=== PATIENT | female | born 2000 | race Caucasian/White ===

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

== ENCOUNTER 2020-12-30 17:23 | Emergency (ER) | payer OTHER, MEDICAID ==
[2020-12-30 17:46] LABS: BILIRUBIN,URINE NEGATIVE (NEGATIVE); GLUCOSE, URINE (UA) 500 mg/dL (NEGATIVE); KETONES,URINE (UA) NEGATIVE (NEGATIVE); LEUKOCYTE ESTERASE, URINE NEGATIVE (NEGATIVE); NITRITE,URINE NEGATIVE (NEGATIVE); OCCULT BLOOD,URINE TRACE-INTA (NEGATIVE); PH,URINE 7.5 PH (5.0-7.5); PROTEIN,URINE NEGATIVE (NEGATIVE); UROBILINOGEN,URINE 0.2 (NORMAL) E.U./dL (NORMAL)
[2020-12-30 17:55] LABS: CLARITY,URINE HAZY (CLEAR); HCG UR QUAL NEGATIVE
[2020-12-30 17:56] LABS: AMORPHOUS SEDIMENT,UR Marked /LPF; BACTERIA,URINE Moderate /HPF (None Seen); RBC,URINE None Seen /HPF (0-5); SQUAMOUS EPITHELIAL CELL,UR MANY Squamous (<= Few); WBC,URINE 0-3 /HPF (0-5)
[2020-12-30] MEDS ORDERED: oxyCODONE 5 MG TABLET PO STA (18:09)
--- NOTE | 2020-12-30 18:10 | ED Physician Documentation ---
PD HPI ABD PAIN - Stated complaint Stated Complaint: RT SIDE PX - Chief complaint Chief Complaint: Back Pain - History obtained from History obtained from: Patient - Additional information Additional information: 20-year-old woman with history of ovarian cysts, anxiety and depression presents with 5 days of right mid lateral abdominal pain. It is waxing and waning but has been constant over the last 6 hours. It is not associated with nausea. She is tried ibuprofen or Aleve and Tylenol without relief. No history of abdominal surgeries but she did have a remote EGD. Review of Systems Ten Systems: 10 systems reviewed and negative Constitutional: denies: Fever, Chills Cardiac: denies: Chest pain / pressure, Palpitations Respiratory: denies: Dyspnea, Cough PD PAST MEDICAL HISTORY - Past Medical History Past Medical History: Yes Cardiovascular: None Respiratory: None Neuro: None Endocrine/Autoimmune: None Psych: Depression, ADD/ADHD - Past Surgical History Past Surgical History: No - Present Medications Home Medications: Ambulatory Orders Medication Instructions Recorded Confirmed Cetirizine [ZyrTEC] 10 mg PO DAILY #15 tablet 09/18/18 12/30/20 Topiramate [Topamax] 100 mg PO BID 09/18/18 12/30/20 cloNIDine [Catapres] 0.1 mg PO ONCE 09/18/18 12/30/20 Oxycodone HCl/Acetaminophen 1 - 2 each PO Q6H PRN #14 tablet 12/30/20 [Percocet 5-325 mg Tablet] Sertraline [Zoloft] 50 mg PO DAILY 12/30/20 12/30/20 Trazodone HCl 100 mg PO DAILY PM 12/30/20 12/30/20 Venlafaxine ER [Effexor ER] 75 mg PO DAILY 12/30/20 12/30/20 - Allergies Allergies/Adverse Reactions: Allergies Allergy/AdvReac Type Severity Reaction Status Date / Time No Known Drug Allergies Allergy Verified 12/30/20 17:33 - Social History Does the pt smoke?: No Smoking Status: Never smoker Does the pt drink ETOH?: No Does the pt have substance abuse?: No - Immunizations Immunizations are current?: Yes PD ED PE NORMAL - Vitals Vital signs reviewed: Yes - General General: Alert and oriented X 3, No acute distress - Abdomen Abdomen: Normal bowel sounds, Soft, Other (Tender in the right lower quadrant without guarding or rebound. Seems to be more in the pelvis than at McBurney's point.) - Back Back: No CVA TTP - Derm Derm: Normal color, Warm and dry - Extremities Extremities: No edema, No calf tenderness / cord - Neuro Neuro: Alert and oriented X 3, Normal speech Results - Vitals Vitals: Vital Signs - 24 hr 12/30/20 17:28 Temperature 36.9 C Heart Rate 74 Respiratory 16 Rate Blood Pressure 136/78 H O2 Saturation 98 Oxygen O2 Source Room air - Labs Labs: Laboratory Tests 12/30/20 12/30/20 12/30/20 17:42 18:28 18:28 WBC 10.4 RBC 4.67 Hgb 14.6 Hct 42.3 MCV 90.6 MCH 31.3 H MCHC 34.5 RDW 12.9 Plt Count 287 MPV 9.9 Neut # (Auto) 6.7 H Lymph # (Auto) 2.7 [place] # (Auto) 0.7 Eos # (Auto) 0.2 Baso # (Auto) 0.1 Absolute Nucleated RBC 0.00 Nucleated RBC % 0.0 Sodium 136 Potassium 4.0 Chloride 108 Carbon Dioxide 20 L Anion Gap 8.0 BUN 16 Creatinine 0.9 Estimated GFR (MDRD) 80 L Glucose 190 H Calcium 9.4 Total Bilirubin 0.7 AST 49 H ALT 55 Alkaline Phosphatase 92 Total Protein 6.9 Albumin 4.4 Globulin 2.5 Albumin/Globulin Ratio 1.8 Lipase 28 Urine Color YELLOW Urine Clarity HAZY Urine pH 7.5 Ur Specific [place] 1.025 Urine Protein NEGATIVE Urine Glucose (UA) 500 H Urine Ketones NEGATIVE Urine Occult Blood TRACE-INTA Urine Nitrite NEGATIVE Urine Bilirubin NEGATIVE Urine Urobilinogen 0.2 (NORMAL) Ur Leukocyte Esterase NEGATIVE Urine RBC None Seen Urine WBC 0-3 Ur Squamous Epith Cells MANY Squamous H Amorphous Sediment Marked Urine Bacteria Moderate H Ur Microscopic Review INDICATED Urine Culture Comments NOT INDICATED Urine HCG, Qual NEGATIVE PD MEDICAL DECISION MAKING - ED course ED course: 20-year-old female presents with right-sided abdominal pain. Differential diagnosis includes ovarian cyst, appendicitis, renal colic at all. CT shows UVJ stones. Pain was better after an oxycodone here. Given that she is of childbearing age and the small stone size I am not prescribing Flomax. She had ancillary complaint of numbness in the anterior lateral left thigh for 6 months. This is consistent with meralgia paresthetica. Departure - Departure Disposition: Home, Self Care Clinical Impression: Renal colic on right side, Meralgia paresthetica of left side Condition: Good Record reviewed to determine appropriate education?: Yes Instructions: ED Stone Renal W Colic Prescriptions: Oxycodone HCl/Acetaminophen [Percocet 5-325 mg Tablet] 1 - 2 each PO Q6H PRN #14 tablet PRN Reason: pain Comments: Today you were seen for 2 kidney stones in the right UVJ measuring 3 mm and 4 mm. Follow-up with your primary care physician on Thursday as scheduled. Return for new or worsening symptoms. Your ancillary complaint of ongoing numbness in the left thigh is consistent with meralgia paresthetica. I am prescribing a short course of narcotic pain medication for you. These are potentially dangerous and addictive medications that should be used carefully. These medications may constipate you. Take an zemo-tog-ytfclou stool softener (docusate) twice daily with plenty of water while taking these medications. If you go 24 hours without a bowel movement, take kktl-[id number] miralax, per package instructions. Do not drink or drive while taking these medications. If you received narcotic or sedating medications while in the emergency department, do not drive for 24 hours. Store this medication in a safe, secure place and out of reach of children. It is a violation of federal law to give or sell this medication to another person or to use in a manner other than prescribed. The ED will not refill narcotic prescriptions, including prescriptions lost or stolen. To dispose of unwanted medications: 1. [facility] at [address] in [place] has a medication drop box. They accept prescription medications (in pill form) Thursday through Thursday 9:00 a.m. to 5:00 p.m. 2. The [facility] [employer] accepts prescription medications (in pill form only) for disposal year round. Call for more in formation. 3. Contact the [facility] for the next [facility] sponsored prescription drug collection event. , [phone], or [phone]; Note that many narcotic pain relievers also contain Tylenol/acetaminophen. Please ensure that your total dose of acetaminophen from all sources does not exceed 3 g (3000 mg) per day.
[2020-12-30 18:34] LABS: BASOPHILS # (AUTO) 0.1 10^3/uL (0.0-0.1); BASOPHILS % (AUTO) 0.6 %; EOSINOPHILS # (AUTO) 0.2 10^3/uL (0.0-0.7); EOSINOPHILS % (AUTO) 1.7 %; HCT - HEMATOCRIT 42.3 % (37.0-47.0); HGB - HEMOGLOBIN 14.6 g/dL (12.0-16.0); LYMPHOCYTES # (AUTO) 2.7 10^3/uL (1.5-3.5); LYMPHOCYTES % (AUTO) 26.1 %; MEAN CORPUSCULAR HEMOGLOBIN 31.3 pg (27.0-31.0); MEAN CORPUSCULAR HGB CONC 34.5 g/dL (32.0-36.0); MEAN CORPUSCULAR VOLUME 90.6 fL (81.0-99.0); MEAN PLATELET VOLUME 9.9 fL (7.9-10.8); MONOCYTES # (AUTO) 0.7 10^3/uL (0.0-1.0); MONOCYTES % (AUTO) 6.6 %; NEUTROPHILS # (AUTO) 6.7 10^3/uL (1.5-6.6); NEUTROPHILS % (AUTO) 64.7 %; PLT - PLATELET COUNT 287 10^3/uL (130-450); RED BLOOD COUNT 4.67 10^6/uL (4.20-5.40); RED CELL DISTRIBUTION WIDTH 12.9 % (12.0-15.0); WHITE BLOOD COUNT 10.4 x10^3/uL (4.8-10.8)
[2020-12-30] MEDS ORDERED: IOVERSOL 320 100 ML VIAL IVP ONE ×2 (18:46→19:04)
[2020-12-30 18:47] LABS: ALBUMIN 4.4 g/dL (3.2-5.5); ALBUMIN/GLOBULIN RATIO 1.8 (1.0-2.2); BILIRUBIN,TOTAL 0.7 mg/dL (0.2-1.0); CALCIUM 9.4 mg/dL (8.5-10.3); CREATININE 0.9 mg/dL (0.4-1.0); TOTAL PROTEIN 6.9 g/dL (6.7-8.2)
--- NOTE | 2020-12-30 19:37 | CT Report ---
PROCEDURE: Abdomen/Pelvis W INDICATIONS: IV only, RLQ pain CONTRAST: IV CONTRAST: Optiray 320 ml: 100 PO CONTRAST: *NO PO CONTRAST TECHNIQUE: After the administration of iodinated contrast, 5 mm thick sections acquired from the diaphragms to t he symphysis. 5 mm thick coronal and sagittal reformats were acquired. For radiation dose reduction , the following was used: automated exposure control, adjustment of mA and/or kV according to patien t size. COMPARISON: None. FINDINGS: Image quality: Excellent. ABDOMEN: Lung bases: Lung bases are clear. Heart size is normal. Solid organs: Liver and spleen are normal in size and enhancement. Gallbladder is normal. Biliary system is non dilated. Pancreas enhances normally. No adrenal nodules. There are 2 stones in the ri ght UVJ measuring 3 mm and 4 mm. Peritoneum and bowel: Bowel loops demonstrate normal wall thickness and caliber. No free fluid or air. Nodes and vessels: No retroperitoneal or mesenteric adenopathy by size criteria. Aorta and inferior vena cava are normal in size. Miscellaneous: No ventral hernias. PELVIS: Genitourinary: Bladder wall thickness is normal. Miscellaneous: No inguinal hernias or adenopathy. Bones: No suspicious bony lesions. No vertebral body compression fractures. IMPRESSION: 2 kidney stones in the right UVJ measuring 3 mm and 4 mm. Reviewed by: Frank Syed on 12/30/2020 7:35 PM PDT Approved by: Frank Syed on 12/30/2020 7:35 PM PDT Station ID: [id number]
[2020-12-30] MEDS ORDERED: oxyCODONE/ACET 5/325 Prepack 4 PO STA (19:46)
[2020-12-30 19:57] VITALS: BP 133/83
== END 2020-12-30 20:05 | disposition home or self-care (01) ==
LOC: ED 17:23
DX: N20.1 Calculus of ureter (principal); G57.12 Meralgia paresthetica, left lower limb
CPT/HCPCS: 36415; 74177; 80053; 81001; 81025; 83690; 85025; 99284; A9270; Q9967; 81003; 87086

== ENCOUNTER 2021-01-14 13:27 | Outpatient (CLI) | payer OTHER, MEDICAID ==
[2021-01-14 16:44] VITALS: BP 150/100
--- NOTE | 2021-01-14 16:44 | SLEEP CARE CONSULTATION ---
Information from patient questionnaire entered by Macarena Ortiz. I have reviewed and concur with the information entered by Macarena Ortiz. This document represents the service I personally performed and the decisions made by me, Irma Mai MD, [facility]. History of Present Illness Service Date and Time: 01/14/2021 1327 Reason for Visit: New patient Chief Complaint: reports: Insomnia Date of Onset: since I was 13 Usual bedtime: 2 - 4 am Time it takes to fall asleep: I take my meds at 8 pm Snores at night: No Observed to quit breathing while asleep: No Sleeps alone due to snoring: No Number of times waking at night: 3-5 Reasons for waking at night: reports: Pain, Bathroom, Other (unknown reasons) Toss, Turn, or Twitch while sleeping: Yes Recalls having dreams: Yes Usually gets out of bed at: Bathroom or I need water Feels refreshed in the morning: No Morning headache: Yes (sometimes, resolves midday) Sleepy or fatigued during the day: Yes Ever fallen asleep while driving: No Takes day naps: Yes Dreams during day naps: Yes Prior sleep studies: No Additional HPI information: I have the pleasure of seeing Ms. Josue today regarding the possibility of her having obstructive sleep apnea. As you know, she is a 20 year old lady who complains of insomnia. The patient tells me that she normally goes to bed around 2 3 am and it takes her approximately just a few minutes to fall asleep. She takes her medications at 8 pm. She has been told that she snores loudly or irregularly at night. She has never been observed to stop breathing in her sleep. However, she sleeps alone. She can recall waking up on the average of 3 - 5 times during the night. Most of the time she wakes up because of having to use the bathroom and pain. She has never awakened because of her own snoring, choking, or having to gasp for air. There is a lot of tossing and turning in her sleep. She has somniloquy (sleep talking) but not somnambulism (sleep walking). She only injured herself once from sleep walking. Generally she can recall having dreams. In the morning she usually gets up out of the bed around noon, not feeling refreshed nor rested. She usually occasionally a morning headache that goes away around noon. During the day she complains of feeling does not feel sleepy and fatigued. Her score on [place] Sleepiness Scale is 9 out of 24. She never has fallen asleep while driving nor has had any accident due to sleepiness. She usually does not take naps during the day. Upon falling asleep during the day she reports having dreams. She complains of restless leg syndrome. She reports having impaired concentration during the day. - Parasomnia Symptoms Ever been unable to move upon waking from sleep: Yes (happens sometimes) Walks in sleep: Yes Talks in sleep: No Ever acted out dreams in sleep: No Ever felt weak in the knees when startled or emotional: Yes Bothered by creepy, crawly, restless sensations in legs: Yes Problems with memory or concentration: Yes Subjective Initial [place] Sleepiness Scale score: 9 (in 2020) Past Medical History Past Medical History: reports: Anxiety, Depression, Mood disorder Social History The patient's occupation is a Not Employed. Patient is Single and lives in [place]. Have you smoked in the past 12 months: No Alcohol use: No Caffeine use: Yes Caffeine amount and frequency: 1 can whenever I buy one every other month Family History Family history of sleep disordered breathing: Yes Family Hx Sleep Apnea: Father: Snoring, Sleep apnea - Treated Allergies and Home Medications Drug allergies reviewed: Yes Home medication list reviewed: Yes Review of Systems Cardiovascular: denies: high blood pressure, palpitations, chest pain, irregular heart rate or pulse, leg or foot swelling, have to sleep sitting up, other Respiratory: denies: shortness of breath, wheeze, sputum production, chronic cough, other Gastrointestinal: denies: heartburn, difficulty swallowing, nausea, vomitting, diarrhea, abdominal pain, other Urinary: denies: incontinence, frequency, urgency, impotence, other Neurological: reports: headaches, disorientation, gait or balance problems, fainting or unconsciousness Psychiatric: reports: Attention Deficit Hyperactivity, anxiety, depression, mood disorder Ear/Nose/Throat: reports: dry mouth/throat, wisdom teeth removed Endocrine: denies: thyroid disease, history of goiter, sluggishness, too hot or cold, excessive thirst, increased appetite, increased urination, unexplained weakness, other Musculoskeletal: denies: joint pain, neck pain, back pain, joint swelling, muscle pain or cramping, mobility problems, other Immunologic: reports: sneezing, rash, itching, allergies to food or environment, other Physical Exam Vital signs obtained and entered by: Dr. Mai Blood Pressure: 150/100 Cuff size: regular Heart Rate: 80 O2 Saturation: 98 Height: 5 ft 7 in Weight: 256 lb Body Mass Index: 40.1 BMI Classification: Morbidly Obese Neck circumference: 13 Mood/affect: normal HEENT: No craniofacial malformation Nostrils: patent to airflow Turbinates: normal Septum: midline Mouth and throat: narrow oropharynx Soft palate: long Hard palate: normal Uvula: normal Uvula visualization: 50% Mallampati Class II Tongue: normal in size Tonsils: small Neck: normal w/o lymphadenopathy or thyromegaly Impression and Plan IMPRESSION: 1. Delayed sleep phase syndrome, with her going to bed around 3 4 am and getting up at noon. However, in the past few weeks she has changed her schedule to midnight o 5 am. We will need a sleep log to see what is her true sleep-wake pattern is. I advised her to not get up any later than 8 am if she goes to bed at might night. Obstructive sleep apnea-hypopnea will have to be ruled out given obesity, narrow oropharynx, and family history. An in- laboratory polysomnography will be scheduled. 2. Sleep Walking not causing injury except once. Most likely, she will grow out of it. Treatment is not indicated at this time. Plan: 1. Schedule polysomnography and return in 1 to 2 weeks after the study to discuss result and initiate therapy. 2. Maintain a regular wake up time and spend no more than 8 hours in bed at night. Avoid naps. The patient will get up no later than 8 am. 4. Attempt to lose weight. Follow up recommended for: Weight management Visit Type: In Office Time Spent with Patient (minutes): 15 Provider Statement: I spent 100% of the Face to Face Visit with the patient with greater than 50% spent counseling the patient and coordination of care.
== END 2021-01-14 13:28 | disposition home or self-care (01) ==
LOC: SC 13:27
PROVIDERS: ATTEND Internal Medicine Pulmonary Disease
DX: G47.21 Circadian rhythm sleep disorder, delayed sleep phase type (principal); F51.3 Sleepwalking [somnambulism]; E66.01 Morbid (severe) obesity due to excess calories; Z68.41 Body mass index [BMI] 40.0-44.9, adult
CPT/HCPCS: 99202; 99212

== ENCOUNTER 2021-02-21 20:30 | Outpatient (CLI) | payer OTHER, MEDICAID | END 2021-02-21 20:31 | disposition home or self-care (01) | LOC: SC 20:30 | PROVIDERS: ATTEND Internal Medicine Pulmonary Disease | DX: G47.8 Other sleep disorders (principal); R53.83 Other fatigue; G44.221 Chronic tension-type headache, intractable; F51.3 Sleepwalking [somnambulism]; G47.00 Insomnia, unspecified; E66.9 Obesity, unspecified; Z68.41 Body mass index [BMI] 40.0-44.9, adult | CPT/HCPCS: 95810 ==

== ENCOUNTER 2021-05-06 13:04 | Outpatient (CLI) | payer OTHER, MEDICAID ==
[2021-05-06 13:28] VITALS: BP 110/70
--- NOTE | 2021-05-06 13:28 | SLEEP CARE CONSULTATION ---
Information from patient questionnaire entered by Kiarra Richard. I have reviewed and concur with the information entered by Kiarra Richard. This document represents the service I personally performed and the decisions made by me, Irma Mai MD, [facility]. History of Present Illness Service Date and Time: 05/06/2021 1304 Initial [place] Sleepiness Scale score: 9 (in 2020) Additional HPI information: Ms. Josue returned for follow up of the sleep study she had on 02/21/2021.. The polysomnography showed that the patient had normal sleep efficiency. The sleep architecture was relatively normal considering the first-night effect. Respiratory monitoring showed no evidence of sleep disordered breathing (AHI = 0.0) or hypoxia (josefina oxygen saturation of 94%). The patient slept mostly supine (supine AHI = 0.0; non-supine = 0.00). No audible snore. There was no significant periodic leg movement of sleep. Cardiac rhythm was normal sinus rhythm without significant arrhythmia. No abnormal behavior (parasomnia) observed during the night. Sleep Study - Results Type of Sleep Study: Polysomnography Prior sleep studies: Yes Year and Where: 01/2021 [facility] Allergies and Home Medications Drug allergies reviewed: Yes Home medication list reviewed: Yes Review of Systems Review of systems same as previous: Yes Physical Exam Blood Pressure: 110/70 Cuff size: regular Heart Rate: 100 O2 Saturation: 98 Height: 5 ft 7 in Weight: 238 lb Body Mass Index: 37.3 BMI Classification: Obese Impression and Plan IMPRESSION: 1. Delayed sleep phase syndrome, causing sleep onset insomnia. The patient states that she is back to online school and can work at her own schedule. Therefore, having a normal sleep-wake schedule is no longer necessary. PLAN: Return for a follow up on as needed basis. Visit Type: In Office Time Spent with Patient (minutes): 15 Provider Statement: I spent 100% of the Face to Face Visit with the patient with greater than 50% spent counseling the patient and coordination of care.
== END 2021-05-06 13:05 | disposition home or self-care (01) ==
LOC: SC 13:04
PROVIDERS: ATTEND Internal Medicine Pulmonary Disease
DX: G47.09 Other insomnia (principal); E66.9 Obesity, unspecified; Z68.37 Body mass index [BMI] 37.0-37.9, adult
CPT/HCPCS: 99212

== ENCOUNTER 2023-02-27 10:30 | Outpatient (CLI) | payer OTHER ==
[2023-02-27 18:16] LABS: BASOPHILS # (AUTO) 0.1 10^3/uL (0.0-0.1); BASOPHILS % (AUTO) 0.7 %; EOSINOPHILS # (AUTO) 0.1 10^3/uL (0.0-0.7); EOSINOPHILS % (AUTO) 1.3 %; HCT - HEMATOCRIT 49.8 % (37.0-47.0); HGB - HEMOGLOBIN 16.3 g/dL (12.0-16.0); LYMPHOCYTES # (AUTO) 2.6 10^3/uL (1.5-3.5); LYMPHOCYTES % (AUTO) 27.9 %; MEAN CORPUSCULAR HEMOGLOBIN 29.6 pg (27.0-31.0); MEAN CORPUSCULAR HGB CONC 32.7 g/dL (32.0-36.0); MEAN CORPUSCULAR VOLUME 90.5 fL (81.0-99.0); MEAN PLATELET VOLUME 10.4 fL (7.9-10.8); MONOCYTES # (AUTO) 0.5 10^3/uL (0.0-1.0); MONOCYTES % (AUTO) 5.1 %; NEUTROPHILS # (AUTO) 6.1 10^3/uL (1.5-6.6); NEUTROPHILS % (AUTO) 64.8 %; PLT - PLATELET COUNT 336 10^3/uL (130-450); RED CELL DISTRIBUTION WIDTH 13.2 % (12.0-15.0); WHITE BLOOD COUNT 9.4 x10^3/uL (4.8-10.8)
[2023-02-27 19:12] LABS: ALBUMIN 4.8 g/dL (3.2-5.5); ALBUMIN/GLOBULIN RATIO 1.8 (1.0-2.2); BILIRUBIN,TOTAL 0.6 mg/dL (0.2-1.0); CALCIUM 9.7 mg/dL (8.5-10.3); CREATININE 0.7 mg/dL (0.6-1.3); POTASSIUM 3.9 mmol/L (3.5-4.5); TOTAL PROTEIN 7.5 g/dL (6.4-8.9)
== END 2023-02-27 10:45 | disposition home or self-care (01) ==
LOC: LAB.N 10:30
PROVIDERS: ATTEND Family Medicine
DX: R10.32 Left lower quadrant pain (principal)
CPT/HCPCS: 36415; 80053; 83690; 85025

== ENCOUNTER 2023-03-01 18:44 | Emergency (ER) | payer OTHER ==
--- OUTSIDE RECORDS SUMMARY | 2023-03-01 19:22 | EXTERNAL MEDICAL SUMMARY RPT | Continuity of Care Document ---
Author Name Unknown Address [address] [place] [address] Phone Organization [facility] Address [address] [place] [address] Phone Care Team Providers Care Merchandise Team Manager Name Role Phone Gwendolyn Salomon Unavailable Unavailable Aly Bauer Unavailable Unavailable Results/Labs test date facility value unit notes Social History date description facility 2022-12-16 00:00 Current [facility] day [facility] 2023-02-04 00:00 Current [facility] day [facility] 2023-02-23 00:00 Current some day [facility] Vital Signs date measurement value units 2023-02-23 00:00 BMI 36.8 kg/m2 2023-02-23 00:00 heart_rate 98 /min 2023-02-23 00:00 height_metric 170.18 cm 2023-02-23 00:00 height_standard 67 in 2023-02-23 00:00 o2_saturation 99 % 2023-02-23 00:00 temperature_metric 36.67 C 2023-02-23 00:00 temperature_standard 98 F 2023-02-23 00:00 weight_metric 106.59 kg 2023-02-23 00:00 weight_standard 234.99 lb
[2023-03-01] MEDS ORDERED: SODIUM CHLORIDE 0.9% 1,000 ML IV STA (19:27)
--- NOTE | 2023-03-01 19:31 | ED Physician Documentation ---
History of Present Illness - Stated complaint Stated Complaint: ABD PX, SOA - Chief complaint Chief Complaint: Abd Pain - History obtained from History obtained from: Patient - Additonal information Additional information: HPI from patient. Patient said she has been experiencing episodic abdominal pain across the mid and lower abdomen for the past week. No inciting, exacerbating, nor ameliorating factors. This been associated, over the past 4 days, with nausea, vomiting, and loose stool. She was evaluated and an urgent care facility in [place] 2 days ago. She says she was called this evening and told she should go to the emergency department for "severe dehydration" (per patient). She does not know what lab abnormality/abnormalities or of concern. Patient says her abdominal pain has improved significantly over the past 48 hours, has occasional mild nausea but no longer vomiting, and had formed stool since earlier this afternoon rather than diarrhea. She says she is tolerating p.o. today. Review of Systems Constitutional: denies: Fever GI: reports: Abdominal Pain (nearly resolved), Nausea (nearly resolved), Vom iting (resolved) : denies: Now [facility] PAST MEDICAL HISTORY - Past Medical History Cardiovascular: None Respiratory: None Neuro: None Endocrine/Autoimmune: None Psych: Depression, ADD/ADHD - Past Surgical History Past Surgical History: No - Present Medications Home Medications: Ambulatory Orders Medication Instructions Recorded Confirmed Cetirizine [ZyrTEC] 10 mg PO DAILY #15 tablet 09/18/18 12/30/20 Topiramate [Topamax] 100 mg PO BID 09/18/18 12/30/20 cloNIDine [Catapres] 0.1 mg PO ONCE 09/18/18 12/30/20 Oxycodone HCl/Acetaminophen 1 - 2 each PO Q6H PRN #14 tablet 12/30/20 [Percocet 5-325 mg Tablet] Sertraline [Zoloft] 50 mg PO DAILY 12/30/20 12/30/20 Trazodone HCl 100 mg PO DAILY PM 12/30/20 12/30/20 Venlafaxine ER [Effexor ER] 75 mg PO DAILY 12/30/20 12/30/20 - Allergies Allergies/Adverse Reactions: Allergies Allergy/AdvReac Type Severity Reaction Status Date / Time No Known Drug Allergies Allergy Verified 12/30/20 17:33 - Social History Does the pt smoke?: No Smoking Status: Never smoker Does the pt drink ETOH?: No Does the pt have substance abuse?: No - Immunizations Immunizations are current?: Yes PD ED PE NORMAL - Vitals Vital signs reviewed: Yes - General General: Alert and oriented X 3, No acute distress, Well developed/nourished - HEENT HEENT: Other (pasty mucous membranes) - Cardiac Cardiac: RRR, No murmur - Respiratory Respiratory: No respiratory distress, Clear bilaterally - Abdomen Abdomen: Soft, Non tender - Back Back: No CVA TTP Results - Vitals Vitals: Vital Signs - 24 hr 03/01/23 03/01/23 19:02 20:05 Temperature 36.8 C Heart Rate 101 H 89 Respiratory 16 16 Rate Blood Pressure 134/100 H 117/95 H O2 Saturation 98 98 Oxygen O2 Source Room air - Labs Labs: Laboratory Tests 03/01/23 03/01/23 03/01/23 19:40 19:40 19:46 WBC 9.6 RBC 5.51 H Hgb 16.3 H Hct 47.9 H MCV 86.9 MCH 29.6 MCHC 34.0 RDW 12.9 Plt Count 247 MPV 10.0 Neut # (Auto) 5.4 Lymph # (Auto) 3.2 [place] # (Auto) 0.7 Eos # (Auto) 0.2 Baso # (Auto) 0.1 Absolute Nucleated RBC 0.00 Nucleated RBC % 0.0 Sodium 137 Potassium 3.9 Chloride 112 H Carbon Dioxide 18 L Anion Gap 7.0 BUN 10 Creatinine 0.6 Estimated GFR (MDRD) 125 Glucose 166 H Calcium 9.8 Total Bilirubin 0.5 AST 69 H ALT 94 H Alkaline Phosphatase 88 Total Protein 7.3 Albumin 4.7 Globulin 2.6 Albumin/Globulin Ratio 1.8 Lipase 15 Urine Color YELLOW Urine Clarity SL. CLOUDY Urine pH 6.0 Ur Specific [place] 1.025 Urine Protein NEGATIVE Urine Glucose (UA) 100 H Urine Ketones NEGATIVE Urine Occult Blood MODERATE H Urine Nitrite NEGATIVE Urine Bilirubin NEGATIVE Urine Urobilinogen 0.2 (NORMAL) Ur Leukocyte Esterase NEGATIVE Urine RBC 0-5 Urine WBC 0-3 Ur Squamous Epith Cells FEW Squamous Amorphous Sediment Marked Urine Bacteria Few Urine Casts 0-2 Hyaline Casts Ur Microscopic Review INDICATED Urine Culture Comments NOT INDICATED PD Medical Decision Making - ED course Complexity details: reviewed results, re-evaluated patient, considered differential, d/w patient ED course: I was able to review the outpatient blood test results from 02/27/2023. No particularly concerning findings on these tests. White blood cell count is normal, mild hyponatremia at 132. There is mildly elevated hemoglobin as well a s mildly elevated hematocrit, possibly representing hemoconcentration. However, her BUN is 11 and creatinine 0.7, which would argue against any significant dehydration. Minimal elevations of transaminases noted with AST 100, ALT 97. Blood sugar 156. I cannot find the results of the urinalysis in my computer system. I discussed with patient testing/treatment options. Although she says she is not tolerating p.o., and is having formed stools. Her description is that these 2 improvements have just started since earlier today, after having great difficulty tolerating p.o., as well as vomiting and diarrhea for at least the past few days. It is reasonable to administer 1 L normal saline through an IV to replete any residual dehydration, and check basic blood work when the IV is placed. Patient agrees with this plan. IV placed and 1 liter NS infused. H/H remain mildly elevated (16.3, 47.9). AST 69, aLT 94. UA negative except for hematuria (only on macro). Results d/w patient, return precautions reviewed. Departure - Departure Disposition: 01 Home, Self Care Clinical Impression: Abdominal pain Condition: Good Instructions: ED Abdominal Pain Female Non-Specific Abdominal Pain, ED Otitis Media Serous Adult Follow-Up: Aly Bauer MD [Primary Care Provider] - Within 1 week Comments: There were no concerning or diagnostic findings on tonight's tests. There were some mild abnormalities that you should mention to your primary care provider the next time you see them; recheck of some or all of these tests might be helpful, at the discretion of your primary care provider. Your hemoglobin and hematocrit ("red blood cell levels) were both mildly above the upper limit of normal. While this would not account for symptoms, it is an abnormal finding, and might warrant further testing. Your liver enzyme levels (AST, ALT) were also mildly elevated. This was noted on the outpatient tests on 02/27/23, and again today (although they have improved in the interim). This is an incidental finding (would not account for any symptoms). is again, mention these elevated tests to your doctor the You see them, might need to be rechecked. Forms: PCP List Discharge Date/Time: 03/01/23 21:22
[2023-03-01 19:47] LABS: BASOPHILS # (AUTO) 0.1 10^3/uL (0.0-0.1); BASOPHILS % (AUTO) 0.7 %; EOSINOPHILS # (AUTO) 0.2 10^3/uL (0.0-0.7); EOSINOPHILS % (AUTO) 1.7 %; HCT - HEMATOCRIT 47.9 % (37.0-47.0); HGB - HEMOGLOBIN 16.3 g/dL (12.0-16.0); LYMPHOCYTES # (AUTO) 3.2 10^3/uL (1.5-3.5); LYMPHOCYTES % (AUTO) 33.9 %; MEAN CORPUSCULAR HEMOGLOBIN 29.6 pg (27.0-31.0); MEAN CORPUSCULAR VOLUME 86.9 fL (81.0-99.0); MONOCYTES # (AUTO) 0.7 10^3/uL (0.0-1.0); MONOCYTES % (AUTO) 6.8 %; NEUTROPHILS # (AUTO) 5.4 10^3/uL (1.5-6.6); NEUTROPHILS % (AUTO) 56.6 %; PLT - PLATELET COUNT 247 10^3/uL (130-450); RED BLOOD COUNT 5.51 10^6/uL (4.20-5.40); RED CELL DISTRIBUTION WIDTH 12.9 % (12.0-15.0); WHITE BLOOD COUNT 9.6 x10^3/uL (4.8-10.8)
[2023-03-01 19:54] LABS: BILIRUBIN,URINE NEGATIVE (NEGATIVE); GLUCOSE, URINE (UA) 100 mg/dL (NEGATIVE); KETONES,URINE (UA) NEGATIVE (NEGATIVE); LEUKOCYTE ESTERASE, URINE NEGATIVE (NEGATIVE); NITRITE,URINE NEGATIVE (NEGATIVE); OCCULT BLOOD,URINE MODERATE (NEGATIVE); PROTEIN,URINE NEGATIVE (NEGATIVE); UROBILINOGEN,URINE 0.2 (NORMAL) E.U./dL (NORMAL)
[2023-03-01 19:55] LABS: CLARITY,URINE SL. CLOUDY (CLEAR)
[2023-03-01 20:02] LABS: AMORPHOUS SEDIMENT,UR Marked /LPF; BACTERIA,URINE Few /HPF (None Seen); CASTS, URINE 0-2 Hyaline Casts /LPF; RBC,URINE 0-5 /HPF (0-5); SQUAMOUS EPITHELIAL CELL,UR FEW Squamous (<= Few); WBC,URINE 0-3 /HPF (0-5)
[2023-03-01 20:03] LABS: ALBUMIN 4.7 g/dL (3.2-5.5); ALBUMIN/GLOBULIN RATIO 1.8 (1.0-2.2); BILIRUBIN,TOTAL 0.5 mg/dL (0.2-1.0); CALCIUM 9.8 mg/dL (8.5-10.3); CREATININE 0.6 mg/dL (0.6-1.3); POTASSIUM 3.9 mmol/L (3.5-4.5); TOTAL PROTEIN 7.3 g/dL (6.4-8.9)
[2023-03-01 21:27] VITALS: BP 117/95
== END 2023-03-01 21:22 | disposition home or self-care (01) ==
LOC: ED 18:44
DX: R10.13 Epigastric pain (principal)
CPT/HCPCS: 36415; 80053; 81001; 81003; 83690; 85025; 87086; 96360; 99283

== ENCOUNTER 2023-04-07 20:16 | Emergency (ER) | payer OTHER ==
--- OUTSIDE RECORDS SUMMARY | 2023-04-07 20:45 | EXTERNAL MEDICAL SUMMARY RPT | Continuity of Care Document ---
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 Name Role Phone Gwendolyn Salomon Unavailable Unavailable Aly Bauer Unavailable Unavailable Results/Labs test date facility value unit notes Social History date description facility 2023-02-04 00:00 Current some day [facility] 2023-02-23 00:00 Current some day [facility] Vital Signs date measurement value units 2023-02-23 00:00 BMI 36.8 kg/m2 2023-02-23 00:00 heart_rate 98 /min 2023-02-23 00:00 height_metric 170.18 cm 2023-02-23 00:00 height_standard 67 in 2023-02-23 00:00 o2_saturation 99 % 2023-02-23 00:00 temperature_metric 36.67 C 2023-02-23 00:00 temperature_standard 98 F 2023-02-23 00:00 weight_metric 106.59 kg 2023-02-23 00:00 weight_standard 234.99 lb
[2023-04-07] MEDS ORDERED: FAMOTIDINE 20 MG TABLET PO STA (21:31)
[2023-04-07] MEDS ORDERED: DROPERIDOL 5 MG/2 ML VIAL IVP STA (21:31)
[2023-04-07] MEDS ORDERED: SUCRALFATE 1 GM/10 ML UDC PO STA (21:31)
[2023-04-07] MEDS ORDERED: PANTOPRAZOLE 40 MG VIAL IVP STA (21:31)
[2023-04-07] MEDS ORDERED: LIDOCAINE VISCOUS 2% 15 ML ORAL SYRINGE MM STA (21:31)
[2023-04-07] MEDS ORDERED: MAG HYDROX/AL HYDROX/SIMETH 30 ML UDC PO STA (21:31)
[2023-04-07 21:39] LABS: BILIRUBIN,URINE NEGATIVE (NEGATIVE); GLUCOSE, URINE (UA) 100 mg/dL (NEGATIVE); KETONES,URINE (UA) TRACE mg/dL (NEGATIVE); LEUKOCYTE ESTERASE, URINE NEGATIVE (NEGATIVE); NITRITE,URINE NEGATIVE (NEGATIVE); OCCULT BLOOD,URINE SMALL (NEGATIVE); PROTEIN,URINE NEGATIVE (NEGATIVE); UROBILINOGEN,URINE 1 (NORMAL) E.U./dL (NORMAL)
[2023-04-07 21:41] LABS: CLARITY,URINE CLOUDY (CLEAR); HCG UR QUAL NEGATIVE
[2023-04-07 21:50] LABS: AMORPHOUS SEDIMENT,UR Moderate /LPF; BACTERIA,URINE Few /HPF (None Seen); RBC,URINE 0-5 /HPF (0-5); SQUAMOUS EPITHELIAL CELL,UR FEW Squamous (<= Few); WBC,URINE 0-3 /HPF (0-5)
[2023-04-07 21:51] LABS: BASOPHILS # (AUTO) 0.1 10^3/uL (0.0-0.1); BASOPHILS % (AUTO) 0.6 %; EOSINOPHILS # (AUTO) 0.2 10^3/uL (0.0-0.7); EOSINOPHILS % (AUTO) 1.6 %; HCT - HEMATOCRIT 47.4 % (37.0-47.0); HGB - HEMOGLOBIN 15.9 g/dL (12.0-16.0); LYMPHOCYTES # (AUTO) 3.5 10^3/uL (1.5-3.5); LYMPHOCYTES % (AUTO) 36.7 %; MEAN CORPUSCULAR HEMOGLOBIN 29.8 pg (27.0-31.0); MEAN CORPUSCULAR HGB CONC 33.5 g/dL (32.0-36.0); MEAN CORPUSCULAR VOLUME 88.8 fL (81.0-99.0); MEAN PLATELET VOLUME 9.7 fL (7.9-10.8); MONOCYTES # (AUTO) 0.6 10^3/uL (0.0-1.0); MONOCYTES % (AUTO) 6.4 %; NEUTROPHILS # (AUTO) 5.2 10^3/uL (1.5-6.6); NEUTROPHILS % (AUTO) 54.4 %; PLT - PLATELET COUNT 271 10^3/uL (130-450); RED BLOOD COUNT 5.34 10^6/uL (4.20-5.40); RED CELL DISTRIBUTION WIDTH 13.5 % (12.0-15.0); WHITE BLOOD COUNT 9.5 x10^3/uL (4.8-10.8)
[2023-04-07 21:57] LABS: ALBUMIN 4.1 g/dL (3.2-5.5); ALBUMIN/GLOBULIN RATIO 1.4 (1.0-2.2); BILIRUBIN,TOTAL 0.7 mg/dL (0.2-1.0); CALCIUM 9.1 mg/dL (8.5-10.3); CREATININE 0.8 mg/dL (0.4-1.0); POTASSIUM 3.4 mmol/L (3.5-5.0)
--- NOTE | 2023-04-07 23:18 | ED Physician Documentation ---
History of Present Illness - Stated complaint Stated Complaint: L SIDE PX - Chief complaint Chief Complaint: Abd Pain - History obtained from History obtained from: Patient - History of Present Illness Timing: Today Pain level max: 8 Pain level now: 8 - Additonal information Additional information: Patient is a 23-year-old female who presents to the emergency department with approximately 2 months of left-sided abdominal pain, nausea and vomiting. She has been seen in 2 emergency departments in an urgent care. She is scheduled for a CT scan on . She states the pain worsened today. She does use marijuana several times per week. Denies any possibility of . No fevers. No chills. Worse with eating and drinking. Nothing makes it better. She states she had an endoscopy many years ago does not recall the results. No diarrhea. No diarrhea. No constipation. She has had emesis as well. No hematemesis Review of Systems Constitutional: denies: Fever GI: reports: Abdominal Pain (LUQ), Nausea, Vomiting. denies: Constipation, Diarrhea Skin: denies: Rash Musculoskeletal: denies: Neck pain, Back pain Neurologic: denies: Headache PD PAST MEDICAL HISTORY - Past Medical History Past Medical History: Yes Cardiovascular: None Respiratory: None Neuro: None Endocrine/Autoimmune: None : Kidney stones Psych: Depression, ADD/ADHD - Past Surgical History Past Surgical History: No - Present Medications Home Medications: Ambulatory Orders Medication Instructions Recorded Confirmed Cetirizine [ZyrTEC] 10 mg PO DAILY #15 tablet 09/18/18 12/30/20 Topiramate [Topamax] 100 mg PO BID 09/18/18 12/30/20 cloNIDine [Catapres] 0.1 mg PO ONCE 09/18/18 12/30/20 Oxycodone HCl/Acetaminophen 1 - 2 each PO Q6H PRN #14 tablet 12/30/20 [Percocet 5-325 mg Tablet] Sertraline [Zoloft] 50 mg PO DAILY 12/30/20 12/30/20 Trazodone HCl 100 mg PO DAILY PM 12/30/20 12/30/20 Venlafaxine ER [Effexor ER] 75 mg PO DAILY 12/30/20 12/30/20 Famotidine [Pepcid] 20 mg PO BID #60 tablet 04/07/23 Sucralfate [Carafate] 1 gm PO ACHS #60 tablet 04/07/23 - Allergies Allergies/Adverse Reactions: Allergies Allergy/AdvReac Type Severity Reaction Status Date / Time No Known Drug Allergies Allergy Verified 04/07/23 20:30 - Social History Does the pt smoke?: No Smoking Status: Never smoker Does the pt drink ETOH?: No Does the pt have substance abuse?: Yes Substance Use and Type: Marijuana - Immunizations Immunizations are current?: Yes - POLST Patient has POLST: No PD ED PE NORMAL - Vitals Vital signs reviewed: Yes - General General: Alert and oriented X 3, No acute distress - HEENT HEENT: Moist mucous membranes - Neck Neck: Supple, no meningeal sign - Cardiac Cardiac: RRR, Strong equal pulses - Respiratory Respiratory: No respiratory distress, Clear bilaterally - Abdomen Abdomen: Soft, Non distended, Other (Tender to palpation left upper quadrant. No peritoneal signs. Otherwise benign exam of the abdomen) - Back Back: No CVA TTP, No spinal TTP - Derm Derm: Warm and dry - Extremities Extremities: No edema, No calf tenderness / cord - Neuro Neuro: Alert and oriented X 3 - Psych Psych: Normal mood, Normal affect Results - Vitals Vitals: Vital Signs - 24 hr 04/07/23 20:24 Temperature 37.0 C Heart Rate 86 Respiratory 20 Rate Blood Pressure 128/79 O2 Saturation 99 Oxygen O2 Source Room air - Labs Labs: Laboratory Tests 04/07/23 04/07/23 04/07/23 21:17 21:17 21:38 WBC 9.5 RBC 5.34 Hgb 15.9 Hct 47.4 H MCV 88.8 MCH 29.8 MCHC 33.5 RDW 13.5 Plt Count 271 MPV 9.7 Neut # (Auto) 5.2 Lymph # (Auto) 3.5 [place] # (Auto) 0.6 Eos # (Auto) 0.2 Baso # (Auto) 0.1 Absolute Nucleated RBC 0.00 Nucleated RBC % 0.0 Sodium Potassium Chloride Carbon Dioxide Anion Gap BUN Creatinine Estimated GFR (MDRD) Glucose Calcium Total Bilirubin AST ALT Alkaline Phosphatase Total Protein Albumin Globulin Albumin/Globulin Ratio Lipase Urine Color YELLOW Urine Clarity CLOUDY Urine pH 7.0 Ur Specific [place] 1.020 Urine Protein NEGATIVE Urine Glucose (UA) 100 H Urine Ketones TRACE Urine Occult Blood SMALL H Urine Nitrite NEGATIVE Urine Bilirubin NEGATIVE Urine Urobilinogen 1 (NORMAL) Ur Leukocyte Esterase NEGATIVE Urine RBC 0-5 Urine WBC 0-3 Ur Squamous Epith Cells FEW Squamous Amorphous Sediment Moderate Urine Bacteria Few Ur Microscopic Review INDICATED Urine Culture Comments NOT INDICATED Urine HCG, Qual NEGATIVE 04/07/23 21:38 WBC RBC Hgb Hct MCV MCH MCHC RDW Plt Count MPV Neut # (Auto) Lymph # (Auto) [place] # (Auto) Eos # (Auto) Baso # (Auto) Absolute Nucleated RBC Nucleated RBC % Sodium 140 Potassium 3.4 L Chloride 110 Carbon Dioxide 21 Anion Gap 9.0 BUN 11 Creatinine 0.8 Estimated GFR (MDRD) 89 Glucose 144 H Calcium 9.1 Total Bilirubin 0.7 AST 50 H ALT 57 Alkaline Phosphatase 82 Total Protein 7.0 Albumin 4.1 Globulin 2.9 Albumin/Globulin Ratio 1.4 Lipase 29 Urine Color Urine Clarity Urine pH Ur Specific [place] Urine Protein Urine Glucose (UA) Urine Ketones Urine Occult Blood Urine Nitrite Urine Bilirubin Urine Urobilinogen Ur Leukocyte Esterase Urine RBC Urine WBC Ur Squamous Epith Cells Amorphous Sediment Urine Bacteria Ur Microscopic Review Urine Culture Comments Urine HCG, Qual PD Medical Decision Making - ED course Complexity details: reviewed results, re-evaluated patient, considered differential, d/w patient, d/w family ED course: No significant lab abnormalities. Symptoms resolved with droperidol, Protonix, Pepcid and GI cocktail. Patient does not want to stay for a CT scan tonight. She states she will follow-up as scheduled in [address] scan. Abdomen is soft, nontender nondistended. Tolerating p.o. without difficulty. Recommend that she have an EGD as an outpatient. Patient symptoms are consistent with gastritis/PUD. Patient counseled regarding signs and symptoms for which I believe and urgent re-evaluation would be necessary. Patient with good understanding of and agreement to plan and is comfortable going home at this time This document was made in part using voice recognition software. While efforts are made to proofread this document, sound alike and grammatical errors may occur. Departure - Departure Disposition: Home, Self Care Clinical Impression: Vomiting Qualifiers: Vomiting type: unspecified Nausea presence: with nausea Qualified Code(s): R11.2 - Nausea with vomiting, unspecified Abdominal pain Qualifiers: Abdominal location: left upper quadrant Qualified Code(s): R10.12 - Left upper quadrant pain Gastritis Qualifiers: Gastritis type: unspecified gastritis Chronicity: acute Gastritis bleeding: without bleeding Qualified Code(s): K29.00 - Acute gastritis without bleeding Condition: Good Instructions: ED Nausea Vomiting, ED PUD Vs Gastritis Follow-Up: your,doctor in 1 week [Other] Prescriptions: Sucralfate [Carafate] 1 gm PO ACHS #60 tablet Famotidine [Pepcid] 20 mg PO BID #60 tablet Comments: Please follow-up on for your CT scan is scheduled. Please return if you worsen. It is recommended that you have an endoscopy performed as your symptoms are concerning for gastritis/peptic ulcer disease. Please eat a very bland diet. Avoid caffeine, energy drinks, alcohol, smoking, vaping. Your prescriptions were sent to [facility] in [place]. Forms: PCP List, Activity restrictions
--- NOTE | 2023-04-08 00:53 | CT Report ---
PROCEDURE: ABDOMEN/PELVIS W INDICATIONS: L sided abd pain, vomiting CONTRAST: Opti 320 100ml TECHNIQUE: After the administration of intravenous contrast, 5 mm thick sections acquired from the diaphragms to the symphysis. 5 mm thick coronal and sagittal reformats were acquired. For radiation dose reducti on, the following was used: automated exposure control, adjustment of mA and/or kV according to mery ent size. COMPARISON: 12/30/2020 FINDINGS: Image quality: There is mild motion artifact. Lung bases: Unremarkable. Heart: Heart is normal in size. ABDOMEN: Liver:There is hypoattenuation of the liver consistent with fatty infiltration. Gallbladder: Within normal limits without calcified gallstones. Biliary ducts: No biliary ductal dilatation. Pancreas: Unremarkable. Spleen: Normal in size. Adrenal Glands: No adrenal nodules. Kidneys and Ureters: No hydronephrosis. Stomach and Bowel: Stomach, small bowel loops, and colon are normal in caliber and wall thickness. T he appendix is normal. There is mild colonic diverticulosis without acute diverticulitis. Peritoneum: No abnormal intraperitoneal fluid. No free air. Ventral Wall: No hernia. Abdominal Nodes: No retroperitoneal or mesenteric adenopathy by size criteria. Vessels: Aorta and inferior vena cava are normal in size. PELVIS: Pelvic Organs:There is a thin-walled right ovarian cyst measuring up to 2.9 cm.. Bladder: Unremarkable. Pelvic Nodes: No enlarged lymph nodes. Miscellaneous: No inguinal hernias. Bones: Visualized osseous structures demonstrate no suspicious lesions. IMPRESSION: 1. No definite acute intra-abdominal abnormality. 2. Hepatic steatosis. 3. Right ovarian cyst measuring up to 2.9 cm is likely physiologic. 4. Colonic diverticulosis without acute diverticulitis. Reviewed by: Da Leal MD on 04/08/2023 12:51 AM PDT Approved by: Da Leal MD on 04/08/2023 12:51 AM PDT Station ID: [id number]
[2023-04-08 01:14] VITALS: BP 122/84; O2SAT 97
--- NOTE | 2023-04-08 01:20 | ED Physician Documentation ---
ED Addendum - Addendum Addendum: 04/08/23 01:16 This patient was evaluated by my colleague Dr. Bueno; please see his note for complete history and physical. Dr. Bueno did initially sign this patient out to me, with CT of the abdomen pelvis pending at the time of signout. However, Dr. Bueno reevaluated the patient before he left for the day, and indicated that the patient had declined the CT and was going to go forward with having the CT performed in the outpatient setting. Dr. Bueno flagged the patient for discharge and printed out discharge instructions. Shortly before the patient was going to be discharged, the genetic technologist came to take the patient to CT. At that point, the patient decided to have the CT of the abdomen pelvis performed tonight after all. Thus, I unflagged patient for d/c. I followed up with the patient when the CT was resulted. There are no concerning nor explanatory findings on the CT. CT demonstrates hepatic steatosis, small (2.9 cm) right-sided ovarian cyst, and diverticulosis. I reviewed these results with patient. She is eager to be discharged and has no questions about the CT findings.
[2023-04-08] MEDS ORDERED: IOVERSOL 320 100 ML VIAL IVP ONE (06:23)
== END 2023-04-08 01:13 | disposition home or self-care (01) ==
LOC: ED 20:16
DX: K29.00 Acute gastritis without bleeding (principal)
CPT/HCPCS: 36415; 74177; 80053; 81001; 81025; 83690; 85025; 96374; 96375; 99283; 99284; A9270; Q9967; 81003; 87086

== ENCOUNTER 2023-07-28 11:04 | Outpatient (CLI) | payer OTHER, MEDICAID ==
[2023-07-28 18:23] LABS: BASOPHILS # (AUTO) 0.1 10^3/uL (0.0-0.1); BASOPHILS % (AUTO) 0.7 %; EOSINOPHILS # (AUTO) 0.2 10^3/uL (0.0-0.7); EOSINOPHILS % (AUTO) 1.9 %; HCT - HEMATOCRIT 49.4 % (37.0-47.0); HGB - HEMOGLOBIN 16.5 g/dL (12.0-16.0); LYMPHOCYTES # (AUTO) 2.9 10^3/uL (1.5-3.5); LYMPHOCYTES % (AUTO) 30.6 %; MEAN CORPUSCULAR HEMOGLOBIN 30.5 pg (27.0-31.0); MEAN CORPUSCULAR HGB CONC 33.4 g/dL (32.0-36.0); MEAN CORPUSCULAR VOLUME 91.3 fL (81.0-99.0); MEAN PLATELET VOLUME 10.8 fL (7.9-10.8); MONOCYTES # (AUTO) 0.5 10^3/uL (0.0-1.0); MONOCYTES % (AUTO) 5.3 %; NEUTROPHILS # (AUTO) 5.7 10^3/uL (1.5-6.6); NEUTROPHILS % (AUTO) 61.1 %; PLT - PLATELET COUNT 292 10^3/uL (130-450); RED BLOOD COUNT 5.41 10^6/uL (4.20-5.40); WHITE BLOOD COUNT 9.4 x10^3/uL (4.8-10.8)
[2023-07-28 18:55] LABS: ALBUMIN 4.5 g/dL (3.2-5.5); ALBUMIN/GLOBULIN RATIO 1.9 (1.0-2.2); ALKALINE PHOSPHATASE 101 IU/L (42-121); ALT ALANINE AMINOTRANSFERASE 46 IU/L (10-60); AST ASPARTATE AMINOTRANSFERASE 29 IU/L (10-42); BILIRUBIN,TOTAL 0.4 mg/dL (0.2-1.0); BUN - BLOOD UREA NITROGEN 9 mg/dL (6-20); CALCIUM 9.4 mg/dL (8.5-10.3); CARBON DIOXIDE - CO2 21 mmol/L (21-32); CHLORIDE 108 mmol/L (101-111); CHOL/HDL RATIO 4.8 (<4.4); CHOLESTEROL 188 mg/dL; CREATININE 0.7 mg/dL (0.6-1.3); GFR - MDRD 104 (>89); GLUCOSE 225 mg/dL (74-104); HDL CHOLESTEROL 39 mg/dL; LDL CHOLESTEROL,CALCULATED 114 mg/dL; LDL/HDL RATIO 2.9 (<4.4); POTASSIUM 4.1 mmol/L (3.5-4.5); SODIUM 136 mmol/L (135-145); THYROID STIMULATING HORMONE 2.08 uIU/mL (0.34-5.60); TOTAL PROTEIN 6.9 g/dL (6.4-8.9); TRIGLYCERIDES 173 mg/dL (48-352); VLDL CHOLESTEROL 35 mg/dL
[2023-07-28 21:01] LABS: ESTIMATED AVERAGE GLUCOSE 220 mg/dL (70-100); HEMOGLOBIN A1c% 9.3 % (4.27-6.07)
== END 2023-07-28 11:05 | disposition home or self-care (01) ==
LOC: LAB.N 11:04
PROVIDERS: ATTEND Physician Assistant
DX: E11.65 Type 2 diabetes mellitus with hyperglycemia (principal)
CPT/HCPCS: 36415; 80053; 80061; 83036; 83721; 84443; 85025

== ENCOUNTER 2023-08-03 14:50 | Outpatient (CLI) | payer OTHER, MEDICAID ==
--- NOTE | 2023-08-03 16:53 | Ultrasound Report ---
PROCEDURE: Pelvic w/Transvaginal INDICATIONS: FEMALE PELVIC PAIN TECHNIQUE: Real-time scanning was performed of the pelvic organs, with image documentation. Additional endovagi nal scanning was necessary due to incomplete visualization of the adnexal and endometrial structures by transabdominal scanning. COMPARISON: None. FINDINGS: Uterus: Uterus is anteverted and normal in size at 7.2 x 2.7 x 4.5 cm. The myometrium is homogeneou s. The endometrium measures 4.6 mm in combined thickness. No uterine fibroids. Fluid within the cer vix with a 5 x 3 x 5 mm nonvascular nodule. Ovaries: The right ovary measures 2.9 x 1.6 x 2.6 cm, with a calculated ovarian volume of 5.9 cc. T he left ovary measures 3.3 x 2.0 x 2.6 cm, with a calculated ovarian volume of 8.7 cc. The ovaries h ave a normal sonographic appearance. Less than 12 follicles can be seen in each ovary. No adnexal m asses are seen. No cystic lesions measuring greater than 3 cm. Other: No pathologic free abdominal or pelvic fluid. IMPRESSION: 1.Fluid within the cervix with a 5 mm noncalcified nodule. Consider direct visualization. 2.The remainder of the pelvic ultrasound is within normal limits. Reviewed by: Sen Holguin MD on 08/03/2023 4:52 PM PST Approved by: Sen Holguin MD on 08/03/2023 4:52 PM PST Station ID: [id number]
== END 2023-08-03 14:51 | disposition home or self-care (01) ==
LOC: DI 14:50
PROVIDERS: ATTEND Nurse Practitioner
DX: R10.2 Pelvic and perineal pain (principal); N88.8 Other specified noninflammatory disorders of cervix uteri

== ENCOUNTER 2023-08-20 10:53 | Outpatient (CLI) | payer OTHER, MEDICAID ==
[2023-08-20 18:26] LABS: CALCIUM 9.5 mg/dL (8.5-10.3); CREATININE 0.7 mg/dL (0.6-1.3)
[2023-08-22 07:10] LABS: C-PEPTIDE SERUM 6.9 ng/mL (1.1-4.4)
== END 2023-08-20 10:54 | disposition home or self-care (01) ==
LOC: LAB.N 10:53
PROVIDERS: ATTEND Physician Assistant
DX: R73.9 Hyperglycemia, unspecified (principal)
CPT/HCPCS: 36415; 80048; 81599; 83525; 84681; 86341

== ENCOUNTER 2023-09-02 11:56 | Outpatient (CLI) | payer OTHER, MEDICAID ==
--- NOTE | 2023-09-02 13:14 | XRAY Report ---
PROCEDURE: Hip w/Pelvis 1V LT INDICATIONS: LEFT LEG NUMBNESS TECHNIQUE: AP pelvis with lateral view(s) of the hip(s). COMPARISON: None. FINDINGS: Bones: No fractures or dislocations. No suspicious bony lesions. Soft tissues: No suspicious soft tissue calcifications or masses. IMPRESSION: No acute bony abnormality. Reviewed by: Sen Holguin MD on 09/02/2023 1:12 PM PST Approved by: Sen Holguin MD on 09/02/2023 1:12 PM PST Station ID: [id number]
--- NOTE | 2023-09-02 13:16 | XRAY Report ---
PROCEDURE: ThoracoLumbar 2+V INDICATIONS: LEFT LEG NUMBNESS TECHNIQUE: 4 views acquired of the thoracolumbar spine. COMPARISON: None FINDINGS: Bones: No acute fractures or dislocations. Visualized inferior ribs appear intact. No suspicious b donny lesions. Soft tissues: No suspicious soft tissue calcifications. IMPRESSION: No acute osseous abnormalities. No significant degenerative changes. Reviewed by: Sen Holguin MD on 09/02/2023 1:14 PM PST Approved by: Sen Holguin MD on 09/02/2023 1:14 PM PST Station ID: [id number]
== END 2023-09-02 11:57 | disposition home or self-care (01) ==
LOC: DI 11:56
PROVIDERS: ATTEND Nurse Practitioner
DX: R20.0 Anesthesia of skin (principal)

== ENCOUNTER 2023-10-02 18:25 | Outpatient (CLI) | payer OTHER, MEDICAID ==
--- NOTE | 2023-10-03 20:50 | XRAY Report ---
PROCEDURE: Foot 3+V RT INDICATIONS: CONTUSION OF RIGHT FOOT TECHNIQUE: 3 views of the foot were acquired. COMPARISON: None. FINDINGS: Bones: No fractures or dislocations. Normal alignment on nonweightbearing view. Joint spaces are maryanne ntained. No suspicious bony lesions. Soft tissues: No tibiotalar joint effusion. Achilles tendon appears normal. Mild soft tissue swell ing in the dorsal aspect of the forefoot. No radiopaque foreign body. IMPRESSION: No acute bony abnormality. If clinical symptoms persist, consider repeat radiograph in 10-14 days tanner rene cross-sectional imaging. Reviewed by: Luis Miguel Buchanan MD on 10/03/2023 8:49 PM PST Approved by: Luis Miguel Buchanan MD on 10/03/2023 8:49 PM PST Station ID: [id number]
== END 2023-10-02 18:26 | disposition home or self-care (01) ==
LOC: DI 18:25
PROVIDERS: ATTEND Physician Assistant Medical
DX: S90.31XA Contusion of right foot, initial encounter (principal)

== ENCOUNTER 2023-10-20 16:58 | Outpatient (CLI) | payer OTHER, MEDICAID ==
--- NOTE | 2023-10-21 08:04 | MRI Report ---
PROCEDURE: Lumbar Spine WO INDICATIONS: LEG NUMBNESS TECHNIQUE: Noncontrast sagittal T1 spin echo and T2 fast echo, sagittal STIR, axial T1 and T2 fast spin echo thr ough the lumbar spine. In cases with scoliosis, additional coronal T2 fast spin echo may be performe d. COMPARISON: None. FINDINGS: Image quality: Excellent. Alignment and Curvature: There is normal bony alignment. Bone Marrow: Marrow is of normal overall signal. No acute vertebral body compression fractures. Spinal Cord: Conus medullaris terminates at the L1-L2 level. Visualized cord demonstrates normal si gnal and size. Paraspinous Soft Tissues: No paravertebral masses. T12-L1: Normal in appearance. L1-L2: Normal in appearance. L2-L3: Normal in appearance. L3-L4: Normal in appearance. L4-L5: Mild disc bulge. Epidural lipomatosis. Borderline canal stenosis. L5-S1: A broad based eccentric right posterior lateral disc bulge abuts the right S1 nerve root in the right lateral recess. Reference axial T2 image 43 of series 6. There is mild facet hypertrophy. T here is no canal stenosis or significant foraminal stenosis.. IMPRESSION: 1. At L5-S1, a broad-based disc bulge abuts the right S1 nerve root in the right lateral recess. Haroldo mmend correlation for presence or absence of right S1 radicular symptoms 2. Borderline canal stenosis at L4-L5 secondary to disc bulge and epidural lipomatosis. Reviewed by: Otis Bowman MD on 10/21/2023 8:03 AM PDT Approved by: Otis Bowman MD on 10/21/2023 8:03 AM PDT Station ID: [id number]
== END 2023-10-20 16:59 | disposition home or self-care (01) ==
LOC: DI 16:58
PROVIDERS: ATTEND Nurse Practitioner
DX: R20.0 Anesthesia of skin (principal); M51.37 Other intervertebral disc degeneration, lumbosacral region; M51.36 Other intervertebral disc degeneration, lumbar region; M48.061 Spinal stenosis, lumbar region without neurogenic claudication; E88.2 Lipomatosis, not elsewhere classified

== ENCOUNTER 2024-02-06 14:34 | Emergency (ER) | payer OTHER, MEDICAID ==
--- NOTE | 2024-02-06 15:05 | ED Physician Documentation ---
PD HPI ABD PAIN - Stated complaint Stated Complaint: LT SIDE PX - Chief complaint Chief Complaint: Abd Pain - History obtained from History obtained from: Patient - History of Present Illness Timing - onset: Yesterday Timing - details: Gradual onset, Still present Quality: Aching, Sharp, Pain Radiation: Lower back (left side), Other (left lower abd) Improved by: Laying still. No: Vomiting Worsened by: Moving, Palpation Associated symptoms: No: Fever, Nausea, Vomiting, Diarrhea Review of Systems Constitutional: denies: Fever, Chills Neurologic: denies: Focal weakness, Numbness PD PAST MEDICAL HISTORY - Past Medical History Past Medical History: Yes Cardiovascular: None Respiratory: None Neuro: None Endocrine/Autoimmune: Type 2 diabetes : Kidney stones Psych: Depression, ADD/ADHD - Past Surgical History Past Surgical History: No - Present Medications Home Medications: Ambulatory Orders Medication Instructions Recorded Confirmed Cetirizine [ZyrTEC] 10 mg PO DAILY #15 tablet 09/18/18 12/30/20 Topiramate [Topamax] 100 mg PO BID 09/18/18 12/30/20 cloNIDine [Catapres] 0.1 mg PO ONCE 09/18/18 12/30/20 Oxycodone HCl/Acetaminophen 1 - 2 each PO Q6H PRN #14 tablet 12/30/20 [Percocet 5-325 mg Tablet] Sertraline [Zoloft] 50 mg PO DAILY 12/30/20 12/30/20 Trazodone HCl 100 mg PO DAILY PM 12/30/20 12/30/20 Venlafaxine ER [Effexor ER] 75 mg PO DAILY 12/30/20 12/30/20 Famotidine [Pepcid] 20 mg PO BID #60 tablet 04/07/23 Sucralfate [Carafate] 1 gm PO ACHS #60 tablet 04/07/23 HYDROcod/ACETAM 5/325 [[place] 5/325] 1 ea PO Q6H PRN #18 tablet 02/06/24 Lidocaine Patch 5% [Lidoderm Patch] 1 patch TOP DAILY PRN #10 patch 02/06/24 Meloxicam [Mobic] 7.5 mg PO BID 10 Days #20 tablet 02/06/24 tiZANidine [Zanaflex] 4 mg PO Q8H PRN #25 tablet 02/06/24 - Allergies Allergies/Adverse Reactions: Allergies Allergy/AdvReac Type Severity Reaction Status Date / Time No Known Drug Allergies Allergy Verified 02/06/24 14:39 - Social History Does the pt smoke?: No Smoking Status: Never smoker Does the pt drink ETOH?: No Does the pt have substance abuse?: Yes - Immunizations Immunizations are current?: Yes - POLST Patient has POLST: No PD ED PE NORMAL - Vitals Vital signs reviewed: Yes - General General: Alert and oriented X 3, Well developed/nourished, Other (appears moderately uncomfortable and guarding motion of the back. ) - Abdomen Abdomen: Soft, Other (mild tender LLQ area without guarding. There is muscular tenderness in lumbar area with local area that is most tnder to point palpation. ) - Back Back: No CVA TTP (but is tender a bit lower than that in lumbar left muscles with trigger poiny of tenderness left side midscapular line about L4 level. ) - Derm Derm: Normal color, Warm and dry, No rash - Neuro Neuro: Alert and oriented X 3, No motor deficit, No sensory deficit, Normal speech Results - Vitals Vitals: Oxygen O2 Source Room air - Labs Labs: Laboratory Tests 02/06/24 02/06/24 02/06/24 14:48 14:52 14:52 WBC 12.2 H RBC 5.62 H Hgb 17.0 H Hct 50.6 H MCV 90.0 MCH 30.2 MCHC 33.6 RDW 13.0 Plt Count 298 MPV 9.9 Neut # (Auto) 8.3 H Lymph # (Auto) 3.0 [place] # (Auto) 0.7 Eos # (Auto) 0.1 Baso # (Auto) 0.1 Absolute Nucleated RBC 0.00 Nucleated RBC % 0.0 Manual Slide Review Indicated WBC Morphology NORMAL APPEARANCE Platelet Estimate NORMAL (130-450,000) Platelet Morphology NORMAL APPEARANCE RBC Morph Micro Appear NORMAL APPEARANCE Sodium 135 Potassium 3.5 Chloride 105 Carbon Dioxide 21 Anion Gap 9.0 BUN 15 Creatinine 0.7 Estimated GFR (MDRD) 104 Glucose 139 H Calcium 9.8 Total Bilirubin 0.7 AST 17 ALT 29 Alkaline Phosphatase 92 Total Protein 7.5 Albumin 4.8 Globulin 2.7 Albumin/Globulin Ratio 1.8 Lipase 19 Urine Color DARK YELLOW Urine Clarity CLEAR Urine pH 6.0 Ur Specific Arnold 1.025 Urine Protein NEGATIVE Urine Glucose (UA) >=1000 H Urine Ketones 15 H Urine Occult Blood NEGATIVE Urine Nitrite NEGATIVE Urine Bilirubin NEGATIVE Urine Urobilinogen 1 (NORMAL) Ur Leukocyte Esterase NEGATIVE Ur Microscopic Review NOT INDICATED Urine Culture Comments NOT INDICATED Urine HCG, Qual NEGATIVE PD Medical Decision Making - ED course Complexity details: reviewed results (abd pelvic CT without kidney stones nor hydro. The result of my trigger point injection in the back is visible as air/fluid in subcut fat. ), re-evaluated patient (she states the meds and injection are both helping reduce pain to more tolerable. ), considered differential (patient with left low back pain that has muscular component and character but goes to abd as well and she states similar to kidney stones. Can get CT to eval. Did trigger point injection in lumbar prior to the CT. ), d/w patient Departure - Departure Disposition: 01 Home, Self Care Clinical Impression: Recurrent low back pain Condition: Stable Record reviewed to determine appropriate education?: Yes Instructions: ED Spasm Back No Trauma Follow-Up: Komal Nicole PA [Primary Care Provider] - Prescriptions: Lidocaine Patch 5% [Lidoderm Patch] 1 patch TOP DAILY PRN #10 patch PRN Reason: pain Meloxicam [Mobic] 7.5 mg PO BID 10 Days #20 tablet HYDROcod/ACETAM 5/325 [[place] 5/325] 1 ea PO Q6H PRN #18 tablet PRN Reason: Pain tiZANidine [Zanaflex] 4 mg PO Q8H PRN #25 tablet PRN Reason: Spasms Comments: You do have tenderness in the muscle area and I did do a local injection with some lidocaine and a steroid called triamcinolone to try to work locally there. Your urine test is normal without any signs of blood or infection. Your kidney function and electrolytes are good. Your complete blood count showed a some elevation of the white count and unclear what this represents an infection. As such though we did do a CT scan to look for any signs of stones or obvious infection in the area. This resulted without any acute findings. At this point we will treat for presumed musculoskeletal pain with a combination of anti-inflammatory, muscle relaxant and a local lidocaine patch to the area. In addition use acetaminophen/Tylenol 500 to 650 mg 4 times daily. To that add hydrocodone every 4-6 hours if needed for pain. I would not 10 this to be short-term over the next several days or so. Hopefully this will quiet down over the next several days to be more at [facility]. Follow-up with your primary care or establish new primary care in [place] when you move. I sent your prescriptions to your preferred pharmacy. I am prescribing a short course of narcotic pain medication for you. These are potentially dangerous and addictive medications that should be used carefully. These medications may constipate you. Take an [id number] stool softener such as docusate twice daily with plenty of water while taking these medications. If you go 24 hours without a bowel movement, take [id number] MiraLAX, per package instructions. Do not drink or drive while taking these medications. If you received narcotic or sedating medications while in the emergency department do not drive for 24 hours. Store this medication in a safe, secure place and out of reach of children. It is a violation of federal law to give or sell this medication to another person or to use in a manner other than prescribed. The ED will not refill narcotic prescriptions, including prescriptions lost or stolen. You can dispose of unwanted medications at the [facility]'s office or at several pharmacies such as [facility]. Forms: PCP List Discharge Date/Time: 02/06/24 17:10
[2024-02-06 15:06] LABS: BASOPHILS # (AUTO) 0.1 10^3/uL (0.0-0.1); BASOPHILS % (AUTO) 0.7 %; EOSINOPHILS # (AUTO) 0.1 10^3/uL (0.0-0.7); EOSINOPHILS % (AUTO) 0.8 %; HCT - HEMATOCRIT 50.6 % (37.0-47.0); LYMPHOCYTES % (AUTO) 24.8 %; MEAN CORPUSCULAR HEMOGLOBIN 30.2 pg (27.0-31.0); MEAN CORPUSCULAR HGB CONC 33.6 g/dL (32.0-36.0); MEAN PLATELET VOLUME 9.9 fL (7.9-10.8); MONOCYTES # (AUTO) 0.7 10^3/uL (0.0-1.0); MONOCYTES % (AUTO) 5.4 %; NEUTROPHILS # (AUTO) 8.3 10^3/uL (1.5-6.6); PLT - PLATELET COUNT 298 10^3/uL (130-450); RED BLOOD COUNT 5.62 10^6/uL (4.20-5.40); WHITE BLOOD COUNT 12.2 x10^3/uL (4.8-10.8)
[2024-02-06 15:16] LABS: BILIRUBIN,URINE NEGATIVE (NEGATIVE); GLUCOSE, URINE (UA) >=1000 mg/dL (NEGATIVE); KETONES,URINE (UA) 15 mg/dL (NEGATIVE); LEUKOCYTE ESTERASE, URINE NEGATIVE (NEGATIVE); NITRITE,URINE NEGATIVE (NEGATIVE); OCCULT BLOOD,URINE NEGATIVE (NEGATIVE); PROTEIN,URINE NEGATIVE (NEGATIVE); UROBILINOGEN,URINE 1 (NORMAL) E.U./dL (NORMAL)
[2024-02-06 15:19] LABS: CLARITY,URINE CLEAR (CLEAR); HCG UR QUAL NEGATIVE
[2024-02-06 15:20] LABS: ALBUMIN 4.8 g/dL (3.2-5.5); ALBUMIN/GLOBULIN RATIO 1.8 (1.0-2.2); BILIRUBIN,TOTAL 0.7 mg/dL (0.2-1.0); CALCIUM 9.8 mg/dL (8.5-10.3); CREATININE 0.7 mg/dL (0.6-1.3); POTASSIUM 3.5 mmol/L (3.5-4.5); TOTAL PROTEIN 7.5 g/dL (6.4-8.9)
[2024-02-06] MEDS: KETOROLAC 30 MG/ML VIAL IM STA (15:29)
[2024-02-06] MEDS: oxyCODONE 5 MG TABLET PO STA (15:29)
[2024-02-06] MEDS: LIDOCAINE PATCH 5% TOP STA ×2 (15:29→15:34)
[2024-02-06 15:30] LABS: SLIDE REVIEW? Indicated
[2024-02-06 15:31] LABS: PLATELET ESTIMATE, MANUAL NORMAL (130-450,000) (NORMAL); PLATELET MORPHOLOGY NORMAL APPEARANCE (NORMAL); RBC MORPHOLOGY (MULTIPLE) NORMAL APPEARANCE (NORMAL); WBC MORPHOLOGY (MULTIPLE) NORMAL APPEARANCE (NORMAL)
--- NOTE | 2024-02-06 16:36 | CT Report ---
PROCEDURE: Abdomen/Pelvis WO INDICATIONS: left flank pain TECHNIQUE: A CT scan of the abdomen and pelvis was performed without the use of intravenous contrast. Images we re recorded and evaluated at appropriate window settings. Reformats: coronal and sagittal. For radiat ion dose reduction, the following was used: automated exposure control, adjustment of mA and/or kV ac cording to patient size. COMPARISON: 04/07/2023, 12/30/2020 Correlation is also made with lumbar spine MRI, 10/20/2023. FINDINGS: Image quality: Diagnostic. Lower chest: Unremarkable. Liver: No contour-deforming mass. Gallbladder: Within normal limits. Biliary tree: No intrahepatic or extrahepatic dilation, accounting for age. Spleen: No splenomegaly. Pancreas: No pancreatic ductal dilation. Adrenals: No adrenal nodule. Kidneys and ureters: There is a 2 mm nonobstructing left-sided kidney stone, as on series 2 image 51. No hydronephrosis is seen on either side. No hydroureter is seen. No nonobstructing stones can be se en on the right. Stomach, bowel and peritoneum: No gastric or small bowel dilation. No abnormal wall thickening. No pa thologic free fluid. A normal appendix is seen. Lymph nodes: No central or retroperitoneal adenopathy. Vessels: No infrarenal aortic aneurysm. Reproductive organs: The uterus demonstrates an unremarkable appearance for age. No adnexal masses ar e seen. An IUD is seen at the expected location. Bladder: Bladder wall thickness is normal, accounting for underdistention. No calcified bladder stone s. Pelvic lymph nodes: No adenopathy by size criteria. Bones: No aggressive osseous abnormality. Other: No significant ventral or inguinal hernia. Within the subcutaneous fat of the left flank, there is abnormal soft tissue gas seen, with a mild am ount of inflammatory change, as on series 2 images 61-75 and on series 4 images 131 through 149. This process measures up to 5 cm. IMPRESSION: Within the subcutaneous fat of the left flank, there is soft tissue gas seen, with mild inflammatory change. Please correlate with penetrating injury versus infection. No hydronephrosis or obstructing renal stone. Note is made of a 2 mm nonobstructing left-sided kidney stone. Additional findings: IUD Normal appendix Reviewed by: Gael Syed MD on 02/06/2024 3:35 PM AKDT Approved by: Gael Syed MD on 02/06/2024 3:35 PM [facility]KA Station ID: [id number]
[2024-02-06] MEDS: TRIAMCINOLONE 40 MG/ML VIAL MC STA (17:18)
[2024-02-06 17:26] VITALS: BP 123/76; O2SAT 98
== END 2024-02-06 17:10 | disposition home or self-care (01) ==
LOC: ED 14:34
DX: M54.50 Low back pain, unspecified (principal); Z32.02 Encounter for pregnancy test, result negative
CPT/HCPCS: 20552; 36415; 74176; 80053; 81003; 81025; 83690; 85025; 96372; 99284; A9270; 81001; 87086

== ENCOUNTER 2024-02-09 10:36 | Outpatient (CLI) | payer OTHER, MEDICAID ==
[2024-02-09 13:01] LABS: BASOPHILS # (AUTO) 0.1 10^3/uL (0.0-0.1); BASOPHILS % (AUTO) 0.5 %; EOSINOPHILS # (AUTO) 0.1 10^3/uL (0.0-0.7); HCT - HEMATOCRIT 51.2 % (37.0-47.0); HGB - HEMOGLOBIN 17.2 g/dL (12.0-16.0); LYMPHOCYTES # (AUTO) 2.7 10^3/uL (1.5-3.5); LYMPHOCYTES % (AUTO) 23.7 %; MEAN CORPUSCULAR HEMOGLOBIN 30.8 pg (27.0-31.0); MEAN CORPUSCULAR HGB CONC 33.6 g/dL (32.0-36.0); MEAN CORPUSCULAR VOLUME 91.8 fL (81.0-99.0); MEAN PLATELET VOLUME 10.2 fL (7.9-10.8); MONOCYTES # (AUTO) 0.7 10^3/uL (0.0-1.0); MONOCYTES % (AUTO) 5.9 %; NEUTROPHILS # (AUTO) 7.8 10^3/uL (1.5-6.6); NEUTROPHILS % (AUTO) 68.5 %; PLT - PLATELET COUNT 295 10^3/uL (130-450); RED BLOOD COUNT 5.58 10^6/uL (4.20-5.40); RED CELL DISTRIBUTION WIDTH 13.3 % (12.0-15.0); WHITE BLOOD COUNT 11.4 x10^3/uL (4.8-10.8)
== END 2024-02-09 10:37 | disposition home or self-care (01) ==
LOC: LAB.N 10:36
PROVIDERS: ATTEND Physician Assistant
DX: D58.2 Other hemoglobinopathies (principal)
CPT/HCPCS: 36415; 82668; 85025